=== PATIENT | male | born 1985 | race Caucasian/White ===

== ENCOUNTER 2017-06-15 14:20 | Emergency (ER) | payer OTHER ==
[~2017-06-15] VITALS: Ht 172.7 cm; Wt 117.6 kg
[~2017-06-15 14:20] MED LIST: AMBIEN10 MG PO; KLONOPIN2 MG PO; MOTRIN800 MG PO; OXAYDO5 MG PO; PERCOCET 5/31 TABLET PO; WELLBUTRIN SR150 MG PO
[2017-06-15] MEDS ORDERED: ADDERALL XR 2020 MG PO (15:40)
[2017-06-15] MEDS ORDERED: FLEXERIL10 MG PO (17:54)
[2017-06-15] MEDS ORDERED: LIDODERM 5% P1 PATCH TD (17:54)
[2017-06-15] MEDS ORDERED: NAPROXEN500 MG PO (17:54)
[2017-06-15 18:14] VITALS: BP 125/84
== END 2017-06-15 18:14 | disposition home or self-care (01) ==
LOC: EME 14:20
DX: S39.012A Strain of muscle, fascia and tendon of lower back, initial encounter (principal); S70.02XA Contusion of left hip, initial encounter; W00.0XXA Fall on same level due to ice and snow, initial encounter; Y99.0 Civilian activity done for income or pay; F17.200 Nicotine dependence, unspecified, uncomplicated
CPT/HCPCS: 72100; 73502; 99281; 99283; J1885

== ENCOUNTER 2017-12-20 09:25 | Emergency (ER) | payer OTHER ==
[~2017-12-20] VITALS: Ht 172.7 cm; Wt 119.6 kg
[~2017-12-20 09:25] MED LIST changes: +ADDERALL XR 2020 MG PO; +FLEXERIL10 MG PO; +LIDODERM 5% P1 PATCH TD; +NAPROXEN500 MG PO
[2017-12-20] MEDS ORDERED: CLEOCIN150 MG PO (11:52)
[2017-12-20] MEDS ORDERED: ULTRAM50 MG PO (11:52)
[2017-12-20 12:11] VITALS: BP 125/97
== END 2017-12-20 12:12 | disposition home or self-care (01) ==
LOC: EME 09:25
DX: L02.212 Cutaneous abscess of back [any part, except buttock and flank] (principal); F17.200 Nicotine dependence, unspecified, uncomplicated; Z88.0 Allergy status to penicillin; Z88.6 Allergy status to analgesic agent
CPT/HCPCS: 99281; 99283